=== PATIENT | female | born 1945 | race Caucasian/White ===

== ENCOUNTER → 2017-01-06 | Outpatient (CLI) | payer MEDICARE, BC ==
[~2017-01-06] MED LIST: ADVIL PM CAPLE1 EACH PO; ASPIRIN EC81 M1 PO; ATENOLOL PO; BENICAR HCT 20-1 TA1 PO; CRESTOR PO; EFFEXOR XR PO; GLUCOPHAGE XR500 MG PO; KLONOPIN PO; LEXAPRO PO; NEURONTIN PO; NEXIUM PO; PRILOSEC PO; PRINIVIL10 MG PO; ZOCOR PO
--- NOTE | ~2017-01-06 | BD1 ---
[facility] A Service of [facility] & [facility] RADIOLOGY TEXT RESULTS PATIENT: LANCE CASTILLO LOCATION: [facility] : 43 UNIT #: [id number] AGE: [address]: Alberto Avery MD SEX: F ORDER DR: [id number] [place] [id number] O MR#: [id number] Acc #: [id number] NAME: LANCE CASTILLO : 1945 SEX: F STUDY DATE/TIME: 01/06/2017 10:04 UNIT: [facility] ROOM: STUDY DESCRIPTION: Dexa Bone Dens 1+ Site Attending Physician: Alberto Avery M.D. Referring Physician: Alberto Avery M.D. Ordering Physician: Alberto Avery M.D. Primary Care Physician: Alberto Avery M.D. MEDICAL IMAGING REPORT This report is preliminary unless electronic signature is present. EXAM DXA scan 01/06/2017. HISTORY Status post menopause with no hormone replacement therapy. Osteopenia and diabetes. Smoking history for 15 years. FINDINGS Bone mineral density in the lumbar spine from L1-L4 is 1.126 g/cm2 which is 0.5 standard deviations below the mean when compared to young adult reference population which is within the range of normal. This is 1.2 standard deviations above the mean when compared to the age-matched population. Bone mineral density in the left femoral neck was 0.917 g/cm2 which is 0.9 standard deviations below the mean when compared to the young adult reference population which is within the range of normal. This is 0.9 standard deviations above the mean when compared to the age-matched population. Bone mineral density in the right femoral neck was 0.864 g per centimeter square which is 1.3 standard deviations below the mean when compared to the young adult reference population which is characteristic of osteopenia. This is 0.5 standard deviations above the mean when compared to the age-matched population. IMPRESSION Bone mineral density in the lumbar spine within the range of normal and within the left hip within the range of normal and within the right hip characteristic of osteopenia. Dictated by... Clifford Smiley M.D. [facility] A Service of [facility] & [facility] RADIOLOGY TEXT RESULTS PATIENT: LANCE CASTILLO [facility] [id number] : 43 UNIT #: [id number] AGE: [address]: Alberto Avery MD SEX: F ORDER DR: THIS IS AN ELECTRONICALLY VERIFIED REPORT Clifford Smiley M.D. at 01/08/2017 8:21 AM JOY/ian TD: 01/06/2017 14:03 JOB #: [id number] MEDICAL IMAGING REPORT Page 1 of 1
== END | disposition home or self-care (01) ==
LOC: SRAD 09:44
DX: Z13.820 Encounter for screening for osteoporosis (principal); Z78.0 Asymptomatic menopausal state
CPT/HCPCS: 77080